=== PATIENT | male | born 1970 | race Caucasian/White ===

== ENCOUNTER 2016-11-03 14:42 | Observation (INO) | payer OTHER ==
[~2016-11-03] VITALS: Ht 157.5 cm; Wt 72.8 kg
[~2016-11-03 14:42] MED LIST: LISI-729 PO; PRED20TA PO; VAREPAK PO
[2016-11-03 15:20] LABS: BASO % 0.2 %; BASO ABS # 0.02 K/uL (0-0.2); COMPLETE YES; EOS % 1.2 %; HEMATOCRIT 47.4 % (42-52); IG% 0.2 %; LYMPH % 21.6 %; LYMPH ABS # 2.19 K/uL (1.2-3.4); MEAN CELL VOLUME 88.6 fL (80-100); MEAN CORPUSCULAR HGB CONC 36.1 g/dl (32-36); MEAN PLATELET VOLUME 8.4 fL (7.4-10.4); MONO % 8.1 %; NEUT % 68.7 %; PLATELET COUNT 303 K/uL (130-400); RED BLOOD COUNT 5.35 M/uL (4.7-6.1); WHITE BLOOD COUNT 10.14 K/uL (4.8-10.8)
--- NOTE | 2016-11-03 15:25 | DIAGNOSTIC IMAGING REPORT ---
CHEST ONE VIEW PORTABLE HISTORY:46 yearsMaleacute chest pain. COMPARISON: Chest radiographs 01/30/2014. TECHNIQUE: Upright AP view of the chest. FINDINGS: Cardiac silhouette is upper limits of normal and unchanged. There is no pneumothorax, pleural effusion, focal airspace consolidation or overt pulmonary edema. The bones are grossly intact. IMPRESSION: No acute cardiopulmonary process. The above report was generated using voice recognition software. It may contain grammatical, syntax or spelling errors. Electronically signed by: Marquis Sullivan 11/03/2016 3:24 PM Dictated Date/Time: 11/03/2016 3:22 PM
[2016-11-03 15:26] LABS: CALCIUM 9.5 mg/dl (8.5-10.1); CREATININE 0.97 mg/dl (0.60-1.40); POTASSIUM 4.2 mmol/L (3.5-5.1)
[2016-11-03] MEDS ORDERED: CYM/30 PO (15:46)
[2016-11-03] MEDS ORDERED: LISI-461 PO (15:46)
[2016-11-03] MEDS ORDERED: OXYC1TAB3 PO (15:46)
[2016-11-03 16:24] LABS: PARTIAL THROMBOPLASTIN RATIO 1.2
[2016-11-03] MEDS ORDERED: CHN/1 PO (16:38)
[2016-11-03] MEDS ORDERED: ACETAMINOPHEN 325 MG TAB PO PRN (16:45)
[2016-11-03] MEDS ORDERED: NITROGLYCERIN 0.4 MG SL PER TAB CHARGE SL PRN (16:45)
[2016-11-03] MEDS ORDERED: ONDANSETRON INJ 2 MG/ML 2 ML VIAL IV PRN (16:45)
--- NOTE | 2016-11-03 17:36 | History and Physical ---
History & Physical Date & Time of Service: Nov 03, 2016 ~ 16:15 Chief Complaint: Chest Pain Primary Care Physician: Wilber Brink PA-C History of Present Illness 46 year old male who presents to the ER with chest pain. Patient reports he was driving in his car when is started. He describes it as located in the center of his chest. He describes it as tightening feeling. He had associated shortness of breath and lightheadedness. At it's worst he rates the pain #5/10. When he got to his pain management appointment he was given ASA and nitro with improvement in the pain. When he arrived to the ER, nitro was given again with resolution of the pain. Patient reports getting this pain for the past year. He denies any specific causative or alleviating factors. He gets the pain weekly. He has a stress test 02/2016 however his exercise capacity was poor. Nuclear stress was recommended however his insurance did not approve. He quit taking his cholesterol medicine a few months ago. He reports he otherwise has been feeling well. No fevers or chills. He denies abdominal pain, nausea, vomiting, and diarrhea. No urinary symptoms. In the ER, EKG does not show any acute changes. Initial troponin is negative. Vitals are stable. Past Medical/Surgical History Medical Problems: (1) Chronic back pain Status: Chronic (2) Depression Status: Chronic (3) HLD (hyperlipidemia) Status: Chronic (4) HTN (hypertension) Status: Chronic Surgical Problems: (1) History of back surgery Permanent Comment: x 3 Status: Chronic (2) Previous back surgery Status: Resolved Family History Heart disease FATHER (first SC in his 40s, at age 64 from [place], had stents and CABG) Hypertension BROTHER BROTHER Stroke MOTHER Social History Smoking Status: Current Every Day Smoker (former 3PPD x 30 years, currently smoking 6 cigarettes/day for the past few months) Alcohol Use: occasionally Allergies Coded Allergies: No Known Allergies (Unverified , 03/05/14) Home Medications Scheduled Duloxetine HCl (Cymbalta), 1 CAP PO DAILY Lisinopril (Zestril), 10 MG PO DAILY Oxycodone Immediate Rel Tab (Roxicodone Ir), 5 MG PO QID Varenicline (Chantix), 1 TAB PO HS Review of Systems ROS per HPI, all other systems reviewed and negative Physical Exam Vital Signs Date Time Temp Pulse Resp B/P (MAP) Pulse Ox O2 Delivery O2 Flow Rate FiO2 11/03/16 16:11 68 20 137/88 98 Room Air 11/03/16 15:17 98 Room Air 11/03/16 15:05 84 11/03/16 14:58 98 Room Air 11/03/16 14:53 36.7 73 20 127/80 97 Room Air 11/03/16 14:51 98 General Appearance: no apparent distress Head: normocephalic Eyes: normal inspection ENT: hearing grossly normal Neck: supple, no JVD Respiratory/Chest: chest non-tender, lungs clear, normal breath sounds, no respiratory distress Cardiovascular: regular rate, rhythm, no edema, normal peripheral pulses Abdomen/GI: normal bowel sounds, non tender, soft Extremities/Musculoskelatal: normal inspection, no calf tenderness Neurologic/Psych: no motor/sensory deficits, alert, normal mood/affect, oriented x 3 Skin: normal color, warm/dry Diagnostics Laboratory Results Results Past 24 Hours Test 11/03/16 14:50 11/03/16 15:11 11/03/16 15:48 11/03/16 16:18 Range/Units White Blood Count 10.14 4.8-10.8 K/uL Red Blood Count 5.35 4.7-6.1 M/uL Hemoglobin 17.1 14.0-18.0 g/dL Hematocrit 47.4 42-52 % Mean Corpuscular Volume 88.6 80-100 fL Mean Corpuscular Hemoglobin 32.0 25-34 pg Mean Corpuscular Hemoglobin Concent 36.1 32-36 g/dl Platelet Count 303 130-400 K/uL Mean Platelet Volume 8.4 7.4-10.4 fL Neutrophils (%) (Auto) 68.7 % Lymphocytes (%) (Auto) 21.6 % Monocytes (%) (Auto) 8.1 % Eosinophils (%) (Auto) 1.2 % Basophils (%) (Auto) 0.2 % Neutrophils # (Auto) 6.97 1.4-6.5 K/uL Lymphocytes # (Auto) 2.19 1.2-3.4 K/uL Monocytes # (Auto) 0.82 0.11-0.59 K/uL Eosinophils # (Auto) 0.12 0-0.5 K/uL Basophils # (Auto) 0.02 0-0.2 K/uL RDW Standard Deviation 42.1 36.4-46.3 fL RDW Coefficient of Variation 12.9 11.5-14.5 % Immature Granulocyte % (Auto) 0.2 % Immature Granulocyte # (Auto) 0.02 0.00-0.02 K/uL Sodium Level 135 136-145 mmol/L Potassium Level 4.2 3.5-5.1 mmol/L Chloride Level 106 98-107 mmol/L Carbon Dioxide Level 24 21-32 mmol/L Anion Gap 5.0 3-11 mmol/L Blood Urea Nitrogen 8 7-18 mg/dl Creatinine 0.97 0.60-1.40 mg/dl Est Creatinine Clear Calc Drug Dose 83.7 ml/min Estimated GFR () 108.1 Estimated GFR (Non- 93.2 BUN/Creatinine Ratio 8.0 10-20 Random Glucose 95 70-99 mg/dl Calcium Level 9.5 8.5-10.1 mg/dl Creatine Kinase MB < 0.5 0.5-3.6 ng/ml Troponin I < 0.015 0-0.045 ng/ml Bedside Troponin I < 0.030 0-0.045 ng/ml Prothrombin Time 11.0 9.0-12.0 SECONDS Prothromb Time International Ratio 1.0 0.9-1.1 Activated Partial Thromboplast Time 30.3 21.0-31.0 SECONDS Partial Thromboplastin Ratio 1.2 Creatine Kinase MB Ratio 0-3.0 Diagnostic Radiology CXR IMPRESSION: No acute cardiopulmonary process. Impression Assessment and Plan CHEST PAIN - admit to tele - patient presenting with chest tightness and shortness of breath, symptoms relieved with nitro x 2; has been having his pain for the past one year, underwent exercise stress test 02/2016 however exercise capacity was poor, nuclear stress was recommended however patient's insurance did not approve - risk factors: HTN, HLD, tobacco use, + family history - initial troponin negative, EKG unchanged from EKG 02/2015 - continue to cycle cardiac enzymes, resting echo - if enzymes remain negative and echo is negative for wall motion abnormalities ; refer for outpatient stress testing - s/p full dose ASA, will continue with 81mg daily - resume statin - will start atorvastatin 80mg - PRN nitro and EKG with further chest pain HTN - BP controlled, continue Lisinopril CHRONIC BACK PAIN - continue home dose of oxycodone DVT PROPHYLAXIS - SQ Lovenox DISPO - The patient will be placed as observation status for now until further work up is complete. Attending Note: Patient is a 46 yr male presents with sudden onset of retrosternal chest pain associated with SOB, dizziness which resolved with NTG and ASA. Troponin negative, EK no acute changes. Currently is chest pain free. Physical Exam: Vitals signs as noted above General Appearance:Moderately built and nourished, no apparent distress Head: normocephalic, Atraumatic Eyes: normal inspection, EOMI, PERRL Neck: supple, no JVD, Trachea midline Respiratory/Chest: Normal CTA, No accessory muscle use Cardiovascular: S1, S2, No murmur Abdomen/GI:Soft, Non tender, Bowel sounds present Extremities/Musculoskelatal:normal inspection, no edema Neurologic/Psych:AAOX3, grossly no focal neurological deficits Skin:normal color,warm Assessment and Plan: Chest Pain r/o ACS: Continue ASA, statins Trend cardiac enzymes Check ECHO Consider Stress test Inpatient Vs outpatient I personally reviewed the record. Patient is interviewed and examined at bedside. Patient's care is coordinated with Eryn Levin FINANCIAL EXAMINER. Please refer to the documentation above for details of patient's presentation and for discussion of other issues. VTE Prophylaxis VTE Risk Assessment Done? Y/N: Yes Risk Level: Moderate
[2016-11-03 18:12] VITALS: BP 103/68; PULSE 68; TEMP 36.7; O2SAT 97; Ht 157.5 cm; Wt 72.8 kg
[2016-11-03] MEDS ORDERED: IV FLUIDS COMPLETED PRN (19:00)
[2016-11-03 19:34] VITALS: BP 110/71; PULSE 62; TEMP 36.7; O2SAT 97
[2016-11-03 20:00] VITALS: O2SAT 97
[2016-11-03] MEDS: ATORVASTATIN 40 MG TAB PO SCH (20:48)
[2016-11-03] MEDS: OXYCODONE HCL IR 5 MG TAB (IMMEDIATE RELEASE) PO SCH (20:48)
[2016-11-03] MEDS ORDERED: VARENICLINE (CHANTIX) 1 MG TAB PO SCH (21:00)
[2016-11-03] MEDS ORDERED: ENOXAPARIN 40 MG/0.4 ML SYR SC SCH (21:00)
--- NOTE | 2016-11-03 22:39 | EMERGENCY ROOM VISIT NOTE ---
History Report prepared by Dorcas: Stephanie Allen Under the Supervision of: Dr. Shilo Harry M.D. First contact with patient: 15:00 Chief Complaint: CHEST PAIN Stated Complaint: CHEST PAIN Nursing Triage Summary: mid sternal chest pain did not feel well stopped at [facility] and was given an aspirin and ntg that relieved the pain. still remains with pressure History of Present Illness The patient is a 46 year old male who presents to the Emergency Room with complaints of persistent central chest pain that began around 1300 today. He currently rates his discomfort as a 5/10 in severity and describes his pain as a pressure. The patient reports that he was driving to [employer] in [place] today when he developed central chest pressure. He additionally associates shortness of breath with his symptoms. The patient states that he was evaluated at [facility] and given 1 dose of nitro which seemed to slightly help alleviate his chest pressure and allowed him to breathe easier. He reports a history of a previous stress test, but denies any history of cardiac stents or previous CA. He states he was unable to finish the stress test. The patient reports a family history of heart disease, noting that his father had his first CA at the age of 44. He additionally notes that he has been attempting to quit smoking recently. The patient states that recently he has noticed a subjective fever and cough. He denies his pain radiating to any other part of the body. The patient denies any diaphoresis or increased swelling to his lower extremities. Source of History: patient Onset: began around 1300 Position: chest (central) Symptom Intensity: 5/10 Quality: pressure Timing: other (persistent) Modifying Factors (Relieving): other (nitro) Associated Symptoms: + fevers, + cough, + SOB, No diaphoresis Review of Systems See HPI for pertinent positives & negatives. A total of 10 systems reviewed and were otherwise negative. Past Medical & Surgical Medical Problems: (1) Chronic back pain (2) Depression (3) HLD (hyperlipidemia) (4) HTN (hypertension) Surgical Problems: (1) History of back surgery (2) Previous back surgery Family History Heart disease Social History Smoking Status: Former Smoker Alcohol Use: occasionally Marital Status: Housing Status: lives with family Occupation Status: employed Current/Historical Medications Scheduled Duloxetine HCl (Cymbalta), 1 CAP PO DAILY Lisinopril (Zestril), 10 MG PO DAILY Oxycodone Immediate Rel Tab (Roxicodone Ir), 5 MG PO QID Varenicline (Chantix), 1 TAB PO HS Allergies Coded Allergies: No Known Allergies (Unverified , 03/05/14) Physical Exam Vital Signs Date Time Temp Pulse Resp B/P (MAP) Pulse Ox O2 Delivery O2 Flow Rate FiO2 11/03/16 15:42 85 16 11/03/16 15:17 98 Room Air 11/03/16 15:06 115/77 11/03/16 15:05 84 11/03/16 14:58 98 Room Air 11/03/16 14:53 36.7 73 20 127/80 97 Room Air 11/03/16 14:51 98 11/03/16 14:47 127/80 Physical Exam Constitutional: Vital signs reviewed. Eyes: Pupils are equal round reactive to light. Conjunctiva are noninjected. ENT: Pharynx is clear without erythema or exudate. Mucous membranes are moist. Neck supple without meningeal signs. Respiratory: Clear to auscultation bilaterally. Breath sounds are equal bilaterally. Cardiovascular: Regular rate and rhythm. No rubs or gallops. GI: Soft, nondistended and nontender. Bowel sounds are present. Musculoskeletal: No peripheral edema. No lower extremity tenderness. Integumentary: No cyanosis. Neurological: The patient is awake and alert. No focal deficits. Psychiatric: Normal affect. Medical Decision & Procedures ER Provider Diagnostic Interpretation: X-ray results as stated below per interpretation by me and the radiologist: CHEST ONE VIEW PORTABLE HISTORY:46 yearsMaleacute chest pain. COMPARISON: Chest radiographs 01/30/2014. TECHNIQUE: Upright AP view of the chest. FINDINGS: Cardiac silhouette is upper limits of normal and unchanged. There is no pneumothorax, pleural effusion, focal airspace consolidation or overt pulmonary edema. The bones are grossly intact. IMPRESSION: No acute cardiopulmonary process. The above report was generated using voice recognition software. It may contain grammatical, syntax or spelling errors. Electronically signed by: Marquis Sullivan 11/03/2016 3:24 PM Dictated Date/Time: 11/03/2016 3:22 PM Laboratory Results 11/03/16 14:50 Red Blood Count 5.35, Mean Corpuscular Volume 88.6, Mean Corpuscular Hemoglobin 32.0, Mean Corpuscular Hemoglobin Concent 36.1, Mean Platelet Volume 8.4, Neutrophils (%) (Auto) 68.7, Lymphocytes (%) (Auto) 21.6, Monocytes (%) (Auto) 8.1, Eosinophils (%) (Auto) 1.2, Basophils (%) (Auto) 0.2, Neutrophils # (Auto) 6.97, Lymphocytes # (Auto) 2.19, Monocytes # (Auto) 0.82, Eosinophils # (Auto) 0.12, Basophils # (Auto) 0.02 11/03/16 14:50 Test 11/03/16 14:50 11/03/16 15:11 11/03/16 15:48 White Blood Count 10.14 K/uL (4.8-10.8) Red Blood Count 5.35 M/uL (4.7-6.1) Hemoglobin 17.1 g/dL (14.0-18.0) Hematocrit 47.4 % (42-52) Mean Corpuscular Volume 88.6 fL (80-100) Mean Corpuscular Hemoglobin 32.0 pg (25-34) Mean Corpuscular Hemoglobin Concent 36.1 g/dl (32-36) Platelet Count 303 K/uL (130-400) Mean Platelet Volume 8.4 fL (7.4-10.4) Neutrophils (%) (Auto) 68.7 % Lymphocytes (%) (Auto) 21.6 % Monocytes (%) (Auto) 8.1 % Eosinophils (%) (Auto) 1.2 % Basophils (%) (Auto) 0.2 % Neutrophils # (Auto) 6.97 K/uL (1.4-6.5) Lymphocytes # (Auto) 2.19 K/uL (1.2-3.4) Monocytes # (Auto) 0.82 K/uL (0.11-0.59) Eosinophils # (Auto) 0.12 K/uL (0-0.5) Basophils # (Auto) 0.02 K/uL (0-0.2) RDW Standard Deviation 42.1 fL (36.4-46.3) RDW Coefficient of Variation 12.9 % (11.5-14.5) Immature Granulocyte % (Auto) 0.2 % Immature Granulocyte # (Auto) 0.02 K/uL (0.00-0.02) Anion Gap 5.0 mmol/L (3-11) Est Creatinine Clear Calc Drug Dose 83.7 ml/min Estimated GFR () 108.1 Estimated GFR (Non- 93.2 BUN/Creatinine Ratio 8.0 (10-20) Calcium Level 9.5 mg/dl (8.5-10.1) Bedside Troponin I < 0.030 ng/ml (0-0.045) Prothrombin Time 11.0 SECONDS (9.0-12.0) Prothromb Time International Ratio 1.0 (0.9-1.1) Activated Partial Thromboplast Time 30.3 SECONDS (21.0-31.0) Partial Thromboplastin Ratio 1.2 D-Dimer < 190 ug/L FEU (0-500) Laboratory results as reviewed by me. ECG Indication: chest pain Rate (beats per minute): 75 Rhythm: normal sinus Findings: no acute ischemic change, no ectopy ED Course 1503: The patient was evaluated in room C11B. A complete history and physical exam was performed. 1550: I discussed the patients case with Winnie Rahman. She is going to evaluate the patient for further treatment. 1551: I reevaluated the patient and he is resting comfortably and not having any current chest pain. I discussed the exam findings with him and I discussed the treatment plan. He verbalized complete understanding and agreement. he will be evaluated for further treatment. Medical Decision This is a 46-year-old male who presents with chest pain. Differential diagnosis includes unstable angina, CA, pleurisy, GERD, anxiety, pneumothorax. I did perform a limited focused review of portions of the patient's old chart on the electronic medical record. The patient has had no recent pertinent visits to this hospital. Blood Pressure Screening: Patient was found to have a slightly elevated blood pressure due to circumstances. I do not believe that the patient requires hypertension monitoring. Medication Reconciliation: I attest that I have personally reviewed the patient' s current medication list. I did evaluate the patient as noted above. IV access was established. The patient was placed on a continuous monitoring tech. I did order and personally review the patient's 12-lead EKG and chest x-ray as described above. He does have T-wave inversions as described above. I did treat him with nitroglycerin sublingually. He did receive aspirin prior to arrival. I did order and review the patient's blood work as noted in the electronic medical record. His first troponin is negative. On reassessment the patient states that his chest pain is completely resolved. I did discuss the test results with the patient. Given his risk factors and abnormal EKG I did recommend hospitalization for repeat cardiac enzymes and further evaluation. I did discuss the case with the hospitalist and manager case management. Consults Time Called: 1543 Consulting Physician: Winnie Rahman Returned Call: 1550 I discussed the patients case with Winnie Rahman. She is going to evaluate the patient for further treatment. Impression Primary Impression: Precordial chest pain Additional Impression: Abnormal EKG Scribe Attestation The scribe's documentation has been prepared under my direct and personally reviewed by me in its entirety. I confirm that the note above accurately reflects all work, treatment, procedures, and medical decision making performed by me. Departure Information Referrals No Doctor, Assigned (PCP) Patient Instructions My [facility] Problem Qualifiers
[2016-11-04] VITALS (7 sets, daily range): BP systolic 102–114; BP diastolic 63–75; PULSE 55–72; TEMP 36.3–36.5; O2SAT 96–98
[2016-11-04 04:05] LABS: HEMATOCRIT 44.9 % (42-52); MEAN CELL VOLUME 89.1 fL (80-100); MEAN CORPUSCULAR HEMOGLOBIN 31.2 pg (25-34); MEAN PLATELET VOLUME 8.4 fL (7.4-10.4); PLATELET COUNT 261 K/uL (130-400); RED BLOOD COUNT 5.04 M/uL (4.7-6.1); WHITE BLOOD COUNT 8.88 K/uL (4.8-10.8)
[2016-11-04 04:23] LABS: BLOOD UREA NITROGEN 10 mg/dl (7-18); BUN/CREATININE RATIO 11.3 (10-20); CALCIUM 8.8 mg/dl (8.5-10.1); CARBON DIOXIDE 28 mmol/L (21-32); CHLORIDE 106 mmol/L (98-107); GLUCOSE 98 mg/dl (70-99); POTASSIUM 3.8 mmol/L (3.5-5.1); SODIUM 138 mmol/L (136-145)
[2016-11-04 04:28] LABS: CHOLESTEROL 230 mg/dl (0-200); CHOLESTEROL/HDL RATIO 8.5; HDL CHOLESTEROL 27 mg/dl; LDL CHOLESTEROL CALCULATED 149 mg/dl; TRIGLYCERIDES 271 mg/dl (0-150); VERY LOW DENSITY LIPOPROT CALC 54 mg/dl
[2016-11-04 07:49] LABS: ESTIMATED AVERAGE GLUCOSE 128 mg/dl; HA1C FLAG Normal (Normal)
[2016-11-04] MEDS: ATORVASTATIN 40 MG TAB PO SCH (08:44)
[2016-11-04] MEDS: OXYCODONE HCL IR 5 MG TAB (IMMEDIATE RELEASE) PO SCH ×2 (08:49→13:00)
[2016-11-04] MEDS ORDERED: LISINOPRIL 10 MG TAB PO SCH (09:00)
[2016-11-04] MEDS ORDERED: ASPIRIN 81 MG ECTAB PO SCH (09:00)
[2016-11-04] MEDS ORDERED: DULOXETINE (CYMBALTA) 30 MG CAP PO SCH (09:00)
--- NOTE | 2016-11-04 09:10 | ECHOCARDIOGRAM REPORT ---
*NOTICE TO RECEIVING [employer] This information is strictly Confidential and protected under [place] law. [place] law prohibits you from making any further disclosure of this information unless further disclosure is expressly permitted by the written consent of the person to whom it pertains or is authorized by law. A general authorization for the release of medical or other information is not sufficient for this purpose. Hospital accepts no responsibility if the information is made available to any other person, INCLUDING THE PATIENT. Interpretation Summary * Name: TOMAS MOTTA Study Date: 11/04/2016 07:22 AM BP: 112/74 mmHg * Patient Location: C.2T\S\E219\S\1 HR: 65 * : 1970 (M/d/yyyy) Gender: Male Height: 62 in * Age: 46 yrs Ethnicity: CA Weight: 162 lb * Ordering Physician: Eryn Levin * Referring Physician: Self, Referred * Performed By: Yari Hernandez RCS * * Reason For Study: Chest pain * BSA: 1.7 m2 * -- Conclusions -- * Small, circumferential pericardial effusion without hemodynamic compromise. Effusion appears organized to suggest chronicity. * Normal LV chamber size and wall thickness. * Normal LV systolic function, EF 65-70%. * No segmental left ventricular wall motion abnormalities are noted. * Normal diastolic function. * No significant valvular pathology. Procedure Details * Left Ventricle The left ventricle is normal in size. There is normal left ventricular wall thickness. Ejection Fraction = 65-70%. Left ventricular systolic function is normal. No segmental left ventricular wall motion abnormalities are noted. The left ventricular wall motion is normal. * Right Ventricle The right ventricular cavity size is normal (basal dimension <4.2 cm in right ventricular apical 4-chamber view). The right ventricular systolic function is normal as assessed by tricuspid annular plane systolic excursion (TAPSE) (normal >1.5 cm). * Atria The left atrial size is normal. Right atrial size is normal. No ASD detected; PFO is not assessed. * Mitral Valve The mitral valve is normal in structure and function. * Tricuspid Valve The tricuspid valve is normal in structure and function. * Aortic Valve The aortic valve is normal in structure and function. * Pulmonic Valve The pulmonary valve is not well seen, but the Doppler examination is normal without significant regurgitation or stenosis. * Great Vessels The aortic root is normal size. * Pericardium/Pleural Small pericardial effusion. A circumferential pericardial effusion is noted. There are no echocardiographic indications of cardiac tamponade. * Left Ventricular Diastolic Function Pulse wave TDI of the anterior and posterior mitral annulas demonstrates normal LV relaxation * * MMode 2D Measurements and Calculations * IVSd 0.90 cm * * LVIDd 4.4 cm * LVIDs 3.1 cm * LVPWd 1.0 cm * * IVS/LVPW 0.87 * FS 30.5 % * EDV(Teich) 89.9 ml * ESV(Teich) 37.6 ml * EF(Teich) 58.2 % * * EDV(cubed) 87.9 ml * ESV(cubed) 29.5 ml * EF(cubed) 66.5 % * * LV mass(C)d 143.4 grams * LV mass(C)dI 82.1 grams/m\S\2 * * SV(Teich) 52.3 ml * SI(Teich) 29.9 ml/m\S\2 * SV(cubed) 58.5 ml * SI(cubed) 33.5 ml/m\S\2 * * Ao root diam 2.5 cm * Ao root area 4.9 cm\S\2 * * LVOT diam 2.0 cm * LVOT area 3.2 cm\S\2 * * LVAd ap4 20.2 cm\S\2 * LVLd ap4 7.7 cm * EDV(MOD-sp4) 45.0 ml * EDV(sp4-el) 45.0 ml * LVAs ap4 8.9 cm\S\2 * LVLs ap4 5.5 cm * ESV(MOD-sp4) 12.2 ml * ESV(sp4-el) 12.1 ml * EF(MOD-sp4) 72.9 % * EF(sp4-el) 73.0 % * * LVAd ap2 22.6 cm\S\2 * LVLd ap2 7.3 cm * EDV(MOD-sp2) 58.8 ml * EDV(sp2-el) 59.2 ml * LVAs ap2 10.9 cm\S\2 * LVLs ap2 5.7 cm * ESV(MOD-sp2) 18.0 ml * ESV(sp2-el) 17.7 ml * EF(MOD-sp2) 69.4 % * EF(sp2-el) 70.0 % * * LVLd %diff -5.33 % * EDV(MOD-bp) 53.2 ml * LVLs %diff 2.6 % * ESV(MOD-bp) 14.7 ml * EF(MOD-bp) 72.4 % * * SV(MOD-sp4) 32.8 ml * SI(MOD-sp4) 18.8 ml/m\S\2 * * SV(MOD-sp2) 40.9 ml * SI(MOD-sp2) 23.4 ml/m\S\2 * * SV(MOD-bp) 38.5 ml * SI(MOD-bp) 22.0 ml/m\S\2 * * SV(sp4-el) 32.9 ml * SI(sp4-el) 18.8 ml/m\S\2 * * SV(sp2-el) 41.5 ml * SI(sp2-el) 23.7 ml/m\S\2 * * * Doppler Measurements and Calculations * MV E max jessica 59.3 cm/sec * MV A max jessica 38.8 cm/sec * * MV E/A 1.5 * * MV dec time 0.19 sec * * Ao V2 max 102.4 cm/sec * Ao max PG 4.2 mmHg * Ao max PG (full) 2.0 mmHg * STEPHEN(V,A) 2.4 cm\S\2 * STEPHEN(V,D) 2.4 cm\S\2 * * LV V1 max PG 2.2 mmHg * * LV V1 max 74.9 cm/sec * * * *
--- NOTE | 2016-11-04 12:34 | Progress Note ---
Internal Med Progress Note Date of Service: Nov 04, 2016. Provider Documentation: SUBJECTIVE: Patient is sitting comfortably in his bed and is in no apparent distress. Denies any chest pain/pressure or SOB now. No other new change or complaint. Slept comfortably overnight. OBJECTIVE: Vital Signs-as noted below Examination: General Appearance: Alert/Awake and is in no apparent distress Head: normocephalic Eyes: normal inspection ENT: hearing grossly normal. ears, Nose & Throat are normal looking. Neck: supple,midline trachea, no JVD Respiratory/Chest: chest non-tender, lungs clear, normal breath sounds, no respiratory distress Cardiovascular: regular rate, rhythm, no edema, normal peripheral pulses Abdomen/GI: normal bowel sounds, non tender, soft Extremities/Musculoskeletal: normal inspection, no calf tenderness Neurologic/Psych: no motor/sensory deficits, alert, normal mood/affect, oriented x 3 Skin: normal color, warm/dry Lab data as noted below. ASSESSMENT & PLAN: Echocardiogram (11/04/2016) Small, circumferential pericardial effusion without hemodynamic compromise. Effusion appears organized to suggest chronicity. Normal LV chamber size and wall thickness. Normal LV systolic function, EF 65-70%. No segmental left ventricular wall motion abnormalities are noted. Normal diastolic function. No significant valvular pathology. CHEST PAIN: Resolved now. Patient presenting with chest tightness and shortness of breath, symptoms relieved with nitro x 2; has been having his pain for the past one year, Underwent exercise stress test 02/2016 however exercise capacity was poor, nuclear stress was recommended however patient's insurance did not approve Risk factors: HTN, HLD, tobacco use, + family history -Serial Troponin are negative, EKG unchanged from EKG 02/2015 -Reviewed the Echocardiogram findings. -Will need outpatient stress testing - s/p full dose ASA, will continue with 81mg daily - Resumed statin Atorvastatin 80mg - PRN nitro and EKG with further chest pain -Lipid profile shows HDL 27 & LDL 149. -Counselled about diet and need to lose weight. Hypertension: Stable & controlled. -Continue Lisinopril Chronic Back Pain: Continue home dose of oxycodone DVT Prophylaxis: Sq Lovenox Code Status: FULL CODE Disposition: Discharge home later today. Follow up with PCP within one week after discharge. Vital Signs: Date Time Temp Pulse Resp B/P (MAP) Pulse Ox O2 Delivery O2 Flow Rate FiO2 11/04/16 11:25 36.5 72 20 114/75 (88) 98 Room Air 11/04/16 08:00 Room Air 11/04/16 07:56 36.5 55 16 103/63 (76) 96 Room Air 11/04/16 04:00 97 Room Air 11/04/16 03:34 36.5 71 18 112/74 (87) 96 Room Air 11/04/16 00:01 97 Room Air 11/04/16 00:00 36.3 72 18 102/68 (79) 97 Room Air 11/03/16 20:00 97 Room Air 11/03/16 19:34 36.7 62 16 110/71 (84) 97 Room Air 11/03/16 18:12 36.7 68 18 103/68 97 Room Air 11/03/16 17:42 80 13 11/03/16 16:42 79 10 11/03/16 16:11 68 20 137/88 98 Room Air 11/03/16 16:10 137/88 11/03/16 15:42 85 16 11/03/16 15:17 98 Room Air 11/03/16 15:06 115/77 11/03/16 15:05 84 11/03/16 14:58 98 Room Air 11/03/16 14:53 36.7 73 20 127/80 97 Room Air 11/03/16 14:51 98 11/03/16 14:47 127/80 Lab Results: Results Past 24 Hours Test 11/03/16 14:50 11/03/16 15:11 11/03/16 15:48 11/03/16 16:18 Range/Units White Blood Count 10.14 4.8-10.8 K/uL Red Blood Count 5.35 4.7-6.1 M/uL Hemoglobin 17.1 14.0-18.0 g/dL Hematocrit 47.4 42-52 % Mean Corpuscular Volume 88.6 80-100 fL Mean Corpuscular Hemoglobin 32.0 25-34 pg Mean Corpuscular Hemoglobin Concent 36.1 32-36 g/dl Platelet Count 303 130-400 K/uL Mean Platelet Volume 8.4 7.4-10.4 fL Neutrophils (%) (Auto) 68.7 % Lymphocytes (%) (Auto) 21.6 % Monocytes (%) (Auto) 8.1 % Eosinophils (%) (Auto) 1.2 % Basophils (%) (Auto) 0.2 % Neutrophils # (Auto) 6.97 1.4-6.5 K/uL Lymphocytes # (Auto) 2.19 1.2-3.4 K/uL Monocytes # (Auto) 0.82 0.11-0.59 K/uL Eosinophils # (Auto) 0.12 0-0.5 K/uL Basophils # (Auto) 0.02 0-0.2 K/uL RDW Standard Deviation 42.1 36.4-46.3 fL RDW Coefficient of Variation 12.9 11.5-14.5 % Immature Granulocyte % (Auto) 0.2 % Immature Granulocyte # (Auto) 0.02 0.00-0.02 K/uL Sodium Level 135 136-145 mmol/L Potassium Level 4.2 3.5-5.1 mmol/L Chloride Level 106 98-107 mmol/L Carbon Dioxide Level 24 21-32 mmol/L Anion Gap 5.0 3-11 mmol/L Blood Urea Nitrogen 8 7-18 mg/dl Creatinine 0.97 0.60-1.40 mg/dl Est Creatinine Clear Calc Drug Dose 83.7 ml/min Estimated GFR () 108.1 Estimated GFR (Non- 93.2 BUN/Creatinine Ratio 8.0 10-20 Random Glucose 95 70-99 mg/dl Estimated Average Glucose 128 mg/dl Hemoglobin A1c 6.1 4.5-5.6 % Calcium Level 9.5 8.5-10.1 mg/dl Creatine Kinase MB < 0.5 0.5-3.6 ng/ml Troponin I < 0.015 0-0.045 ng/ml Bedside Troponin I < 0.030 0-0.045 ng/ml Prothrombin Time 11.0 9.0-12.0 SECONDS Prothromb Time International Ratio 1.0 0.9-1.1 Activated Partial Thromboplast Time 30.3 21.0-31.0 SECONDS Partial Thromboplastin Ratio 1.2 D-Dimer < 190 0-500 ug/L FEU Creatine Kinase MB Ratio 0-3.0 Test 11/03/16 22:00 11/03/16 22:19 11/04/16 03:44 Range/Units Creatine Kinase MB Ratio 0-3.0 Creatine Kinase MB < 0.5 0.5 0.5-3.6 ng/ml Troponin I < 0.015 < 0.015 0-0.045 ng/ml White Blood Count 8.88 4.8-10.8 K/uL Red Blood Count 5.04 4.7-6.1 M/uL Hemoglobin 15.7 14.0-18.0 g/dL Hematocrit 44.9 42-52 % Mean Corpuscular Volume 89.1 80-100 fL Mean Corpuscular Hemoglobin 31.2 25-34 pg Mean Corpuscular Hemoglobin Concent 35.0 32-36 g/dl RDW Standard Deviation 41.7 36.4-46.3 fL RDW Coefficient of Variation 12.9 11.5-14.5 % Platelet Count 261 130-400 K/uL Mean Platelet Volume 8.4 7.4-10.4 fL Sodium Level 138 136-145 mmol/L Potassium Level 3.8 3.5-5.1 mmol/L Chloride Level 106 98-107 mmol/L Carbon Dioxide Level 28 21-32 mmol/L Anion Gap 4.0 3-11 mmol/L Blood Urea Nitrogen 10 7-18 mg/dl Creatinine 0.90 0.60-1.40 mg/dl Est Creatinine Clear Calc Drug Dose 90.2 ml/min Estimated GFR () 118.3 Estimated GFR (Non- 102.1 BUN/Creatinine Ratio 11.3 10-20 Random Glucose 98 70-99 mg/dl Calcium Level 8.8 8.5-10.1 mg/dl Triglycerides Level 271 0-150 mg/dl Cholesterol Level 230 0-200 mg/dl HDL Cholesterol 27 mg/dl LDL Cholesterol, Calculated 149 mg/dl VLDL Cholesterol, Calculated 54 mg/dl Cholesterol/HDL Ratio 8.5
[2016-11-04] MEDS ORDERED: LPT40 PO (12:43)
[2016-11-04] MEDS ORDERED: ASPEC81 PO (12:43)
--- NOTE | 2016-11-04 12:45 | Discharge Instructions ---
Discharge Instructions Date of Service Nov 04, 2016. 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 2. Monitor your diet for low fat and try to lose weight gradually. 3. Need to have blood work done for checking your lipid profile and LFT in 4-6 weeks Discuss with PCP Follow up with PCP in 3-5 days after discharge. . Current Hospital Diet Patient's current hospital diet: AHA Diet (Heart Healthy) Discharge Diet Recommended Diet: AHA Diet (Heart Healthy) Pending Studies Studies pending at discharge: no Laboratory Results Hemoglobin A1c Test 11/03/16 14:50 Range/Units Estimated Average Glucose 128 mg/dl Hemoglobin A1c 6.1 H 4.5-5.6 % Lipid Panel Test 11/04/16 03:44 Range/Units Triglycerides Level 271 H 0-150 mg/dl Cholesterol Level 230 H 0-200 mg/dl HDL Cholesterol 27 mg/dl Cholesterol/HDL Ratio 8.5 LDL Cholesterol, Calculated 149 mg/dl Medical Emergencies . Who to Call and When: Medical Emergencies: If at any time you feel your situation is an emergency, please call 911 immediately. . Non-Emergent Contact Non-Emergency issues call your: Primary Care Provider . . "Provider Documentation" section prepared by Ted Sparks. . VTE Core Measure Inpt VTE Proph given/why not?: Enoxaparin (Lovenox)SQ
--- NOTE | 2016-11-04 12:48 | Discharge Summary ---
Discharge Summary Date of Service Nov 04, 2016. Discharge Summary Admission Date: Nov 03, 2016 at 16:09 Discharge Date: Nov 04, 2016 Discharge Disposition: Home Principal Diagnosis: Non-cardiac Chest Pain Secondary Diagnoses/Problems: Hypertension Procedures: Echocardiogram Vaccinations: NONE Consultations: NONE Pending Studies/Follow-Up: Need to have Lipid Profile and LFTs done in 4-6 weeks. Medication Reconciliation New Medications: Aspirin (Aspirin EC Low Dose) 81 Mg Ectab 81 MG PO QAM, #100 TAB Atorvastatin (Atorvastatin Calcium) 40 Mg Tab 80 MG PO QAM, #30 TAB Continued Medications: Duloxetine HCl (Cymbalta) 30 Mg Cap 1 CAP PO DAILY for 30 Days, #30 CAP 2 Refills Lisinopril (Zestril) 10 Mg Tab 10 MG PO DAILY, TAB Oxycodone Immediate Rel Tab (Roxicodone Ir) 5 Mg Tab 5 MG PO QID, TAB Varenicline (Chantix) 1 Mg Tab 1 TAB PO HS for 30 Days, TAB 1 Refill Admission Information HPI (per Admitting provider): 46 year old male who presents to the ER with chest pain. Patient reports he was driving in his car when is started. He describes it as located in the center of his chest. He describes it as tightening feeling. He had associated shortness of breath and lightheadedness. At it's worst he rates the pain #5/10. When he got to his pain management appointment he was given ASA and nitro with improvement in the pain. When he arrived to the ER, nitro was given again with resolution of the pain. Patient reports getting this pain for the past year. He denies any specific causative or alleviating factors. He gets the pain weekly. He has a stress test 02/2016 however his exercise capacity was poor. Nuclear stress was recommended however his insurance did not approve. He quit taking his cholesterol medicine a few months ago. He reports he otherwise has been feeling well. No fevers or chills. He denies abdominal pain, nausea, vomiting, and diarrhea. No urinary symptoms. In the ER, EKG does not show any acute changes. Initial troponin is negative. Vitals are stable. Physical Exam (per Admitting): General Appearance: no apparent distress Head: normocephalic Eyes: normal inspection ENT: hearing grossly normal Neck: supple, no JVD Respiratory/Chest: chest non-tender, lungs clear, normal breath sounds, no respiratory distress Cardiovascular: regular rate, rhythm, no edema, normal peripheral pulses Abdomen/GI: normal bowel sounds, non tender, soft Extremities/Musculoskelatal: normal inspection, no calf tenderness Neurologic/Psych: no motor/sensory deficits, alert, normal mood/affect, oriented x 3 Skin: normal color, warm/dry Hospital Course Echocardiogram (11/04/2016) Small, circumferential pericardial effusion without hemodynamic compromise. Effusion appears organized to suggest chronicity. Normal LV chamber size and wall thickness. Normal LV systolic function, EF 65-70%. No segmental left ventricular wall motion abnormalities are noted. Normal diastolic function. No significant valvular pathology. CHEST PAIN: Resolved now. Patient presenting with chest tightness and shortness of breath, symptoms relieved with nitro x 2; has been having his pain for the past one year, Underwent exercise stress test 02/2016 however exercise capacity was poor, nuclear stress was recommended however patient's insurance did not approve Risk factors: HTN, HLD, tobacco use, + family history -Serial Troponin are negative, EKG unchanged from EKG 02/2015 -Reviewed the Echocardiogram findings. -Will need outpatient stress testing - s/p full dose ASA, will continue with 81mg daily - Resumed statin Atorvastatin 80mg - PRN nitro and EKG with further chest pain -Lipid profile shows HDL 27 & LDL 149. -Counselled about diet and need to lose weight. Hypertension: Stable & controlled. -Continue Lisinopril Chronic Back Pain: Continue home dose of oxycodone DVT Prophylaxis: Sq Lovenox Code Status: FULL CODE Disposition: Discharge home later today. Follow up with PCP within one week after discharge. Total time spent on discharge = 35 minutes. This includes examination of the patient, discharge planning, medication reconciliation, and communication with other providers. 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 2. Monitor your diet for low fat and try to lose weight gradually. 3. Need to have blood work done for checking your lipid profile and LFT in 4-6 weeks Discuss with PCP Follow up with PCP in 3-5 days after discharge. . Current Hospital Diet Patient's current hospital diet: AHA Diet (Heart Healthy) Discharge Diet Recommended Diet: AHA Diet (Heart Healthy) Additional Copies To Wilber Brink PA-C
== END 2016-11-04 13:20 | disposition home or self-care (01) ==
LOC: EDBD 14:42 → C.EDC 14:43 → C.2T 16:09 → ENRESERV 17:01
PROVIDERS: ADMIT Internal Medicine; ATTEND Emergency Medicine
DX: R07.89 Other chest pain (principal); R94.31 Abnormal electrocardiogram [ECG] [EKG]; I10 Essential (primary) hypertension; E78.5 Hyperlipidemia, unspecified; F32.9 Major depressive disorder, single episode, unspecified; G89.29 Other chronic pain; M54.9 Dorsalgia, unspecified; Z87.891 Personal history of nicotine dependence; Z79.899 Other long term (current) drug therapy; Z82.49 Family history of ischemic heart disease and other diseases of the circulatory system